=== PATIENT | male | born 1975 | race Caucasian/White ===

== ENCOUNTER 2018-07-11 00:36 | Inpatient (IN) | payer BC ==
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
[2018-07-11 01:53] LABS: PLATELET COUNT 283 10^3/uL (150-400)
[2018-07-11 01:57] LABS: INR 0.87 (0.83-1.16)
[2018-07-11] MEDS ORDERED: D50W 25 GM/50 ML SYR IVP ONE ×2 (02:20→02:21)
[2018-07-11] MEDS ORDERED: ONDANSETRON 4 MG/2 ML VIAL IVP PRN (02:47)
[2018-07-11] MEDS ORDERED: diphenhydrAMINE 25 MG CAP PO PRN (02:47)
[2018-07-11] MEDS: oxyCODONE IR 5 MG TAB PO PRN ×3 (03:35→15:24)
[2018-07-11] MEDS: ONDANSETRON DISINTEGRATING 4 MG TAB PO PRN ×2 (04:42→15:23)
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
[2018-07-11] MEDS: SENNOSIDES/DOCUSATE SODIUM TAB PO SCH ×2 (07:42→19:35)
[2018-07-11] MEDS: NS 1,000 ML IV SCH ×2 (07:42→16:35)
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
[2018-07-11] MEDS: ACETAMINOPHEN 500 MG TAB PO SCH ×2 (17:52→22:20)
[2018-07-12] MEDS ORDERED: IBUPROFEN 600 MG TAB PO PRN (04:22)
[2018-07-12 07:39] VITALS: BP 121/78
[2018-07-12] MEDS: ACETAMINOPHEN 500 MG TAB PO SCH (07:57)
[2018-07-12] MEDS: SENNOSIDES/DOCUSATE SODIUM TAB PO SCH (10:09)
== END 2018-07-12 10:30 | disposition home or self-care (01) | DRG 87 ==
LOC: OBSVTOIN 01:50 → F3N 03:07
PROVIDERS: ADMIT Neurological Surgery; ATTEND Neurological Surgery
PROC: 0HQ0XZZ Repair Scalp Skin, External Approach (ICD-10-PCS; principal; 2018-07-11)
DX: S02.19XA Other fracture of base of skull, initial encounter for closed fracture (principal); S01.01XA Laceration without foreign body of scalp, initial encounter; F10.129 Alcohol abuse with intoxication, unspecified; Y90.7 Blood alcohol level of 200-239 mg/100 ml; V18.0XXA Pedal cycle driver injured in noncollision transport accident in nontraffic accident, initial encounter; R40.2411 Glasgow coma scale score 13-15, in the field [EMT or ambulance]
CPT/HCPCS: 96374; 97161-GP; 97165-GO; G0480; J2270; J2405